=== PATIENT | male | born 1960 | race Caucasian/White ===

== ENCOUNTER → 2024-02-20 | Outpatient (CLI) | payer MEDICARE, SELFPAY ==
--- NOTE | 2024-02-20 10:00 | XR_ITS ---
Examination: CTA chest with intravenous contrast 2-D reconstructions 3-D reconstructions, vascular Date and time of exam: February 20, 2024 1108 hours INDICATIONS: CT chest January 24, 2023 4 mm pulmonary nodule lingular segment left upper lobe CTDI: vol (mGy) 28.9 DLP: (mGycm) 620 Technique: Multiple axial sections of the thorax have been obtained. 3 mm slice thickness, from below the hemidiaphragms to above the apices of the lungs. Mediastinal and lung density settings have been obtained. 2-D sagittal and coronal reconstructions. 3-D angiographic renderings, 3-D volume renderings, 3D post processing, vascular maximum intensity projections obtained. Contrast administered is 100 cc Isovue-370 intravenous. Low dose protocols were performed. One or more of the following dose reduction techniques were used; automated exposure control, adjustment of the mA and/or KV according to patient size, use of iterative reconstruction technique. Findings: No thoracic aortic aneurysm dilatation or dissection No pulmonary artery emboli No paratracheal tracheobronchial or bronchopulmonary adenopathy No current pulmonary nodules No pneumonia or pulmonary edema No interval solid liver lesions Gallstones are not identified IMPRESSION: No mediastinal lymphadenopathy No current pulmonary nodules noted
[2024-02-20 10:34] LABS: Alanine Aminotransferase 22 U/L (10-49); Albumin, Serum 4.1 gm/dL (3.4-4.8); Albumin/Globulin Ratio 1.6 (1.2-2.2); Alkaline Phosphatase 69 U/L (46-116); Anion Gap 6 (7-16); Aspartate Amino Transferase 16 U/L (0-34); BUN/Creatinine Ratio 19 Ratio (12-20); Bilirubin,Total 0.6 mg/dL (0.3-1.2); Blood Urea Nitrogen 17 mg/dL (9-23); Calcium 9.1 mg/dL (8.3-10.6); Calcium (Corrected) 9.1 mg/dL (8.5-10.1); Carbon Dioxide 28.1 mMol/L (20.0-31.0); Chloride 102 mMol/L (98-107); Creatinine (Component) 0.9 mg/dL (0.6-1.3); Globulin 2.5 gm/dL (2.3-3.5); Glucose 94 mg/dL (74-106); Osmolality,Calculated 273 (275-295); Potassium 4.6 mMol/L (3.4-5.1); Sodium 136 mMol/L (136-145); Total Protein 6.6 gm/dL (5.7-8.2); eGFR > 60 See Note
== END | disposition home or self-care (01) ==
LOC: CCTX 09:29 → COPL 09:39
PROVIDERS: PCP Nurse Practitioner Family; Referring Provider Nurse Practitioner Family; Visit Provider Radiology Diagnostic Radiology
DX: R91.8 Other nonspecific abnormal finding of lung field (principal); Z01.812 Encounter for preprocedural laboratory examination
CPT/HCPCS: 36415; 71275; 80053; A4649; Q9967

== ENCOUNTER → 2024-05-21 | Outpatient (CLI) | payer MEDICARE, SELFPAY ==
--- NOTE | 2024-05-21 10:30 | XR_ITS ---
MRI shoulder, left, without contrast. Date and time: May 21, 2024 1036 hours INDICATIONS: Injury to the shoulder 2 years ago, patient fell with shoulder pain Technique: Multiple axial, sagittal and coronal sections of the shoulder have been obtained. Siemens high-resolution 1.5 Ada MRI scanner is utilized. Axial fat-suppressed sections, TR 2350, TE 18 T2-weighted coronal fat-saturated images, TR 3500, TE 7100 T1-weighted coronal images, TR 500, TE 15 T2-weighted sagittal fat-saturated images, TR 3500, TE 57 T1-weighted sagittal sections left, TR 504, TE 13. Findings: 25 mm full-thickness rotator cuff tear Subscapularis insertion is intact. Subscapularis bursa is not seen. Long head of the biceps is in the bicipital groove. No definite tear of the biceps superior labral anchor is seen. Retraction of the musculotendinous junction of the rotator cuff is not seen . Tendinosis pattern is prominent. Distance between the acromium and humeral head is 9 mm Atrophy of the supraspinatus muscle is severe. Atrophy of the infraspinatus muscle is severe. Sagittal sections demonstrate a horizontal acromion. Acromioclavicular joint demonstrates moderate osteoarthritis. Osacromiale is not identified. Fraying and irregularity anterior superior labral margins. Bony glenoid fossa on the sagittal sections does not demonstrate osseous defect. Occult fracture or area of avascular necrosis is not seen. Acromioclavicular joint separation is not visible. Defect in the posterolateral margin of the humeral head is not seen Impression: 25 mm full-thickness rotator cuff tear Fraying and irregularity anterior superior labral margins
== END | disposition home or self-care (01) ==
PROVIDERS: PCP Internal Medicine; Referring Provider Orthopaedic Surgery; Visit Provider Orthopaedic Surgery
DX: S46.012A Strain of muscle(s) and tendon(s) of the rotator cuff of left shoulder, initial encounter (principal); W19.XXXA Unspecified fall, initial encounter; M25.812 Other specified joint disorders, left shoulder
CPT/HCPCS: 73221

== ENCOUNTER 2024-11-15 14:12 | Emergency (ER) | payer MEDICARE, SELFPAY ==
[2024-11-15 14:20] VITALS: BP 131/90; PULSE 78; RESP 20; TEMP 37.1; O2SAT 95; BMI 43.5
--- NOTE | 2024-11-15 14:38 | PD.EDRME ---
Rapid Medical Screening Exam [facility] Arrival date/time: 11/15/24 14:12 Chief Complaint: Extremity Injury, Lower Time Seen by Provider: 11/15/24 14:23 Vital signs: Vital Signs Temperature 98.7 F 11/15/24 14:20 Pulse Rate 78 11/15/24 14:20 Respiratory Rate 20 11/15/24 14:20 Blood Pressure 131/90 H 11/15/24 14:20 Pulse Oximetry (%) 95 11/15/24 14:20 Oxygen Delivery Method Room Air 11/15/24 14:20 [facility] Narrative: 64-year-old male with history of A-fib fell 3 days ago. States now feels some shortness of breath and thinks from the pain he is going into runs of A-fib, on Xarelto 5 mg twice daily. States now his upper leg knee right calf and right ankle hurt and unable to bear weight. He is worried that he may be having something with his heart as well today. Due to him being sweaty and having some shortness of breath earlier today did not take aspirin.
--- NOTE | 2024-11-15 14:39 | XR_ITS ---
Examination: Right femur 2 views Technique one AP lateral right femur 2 views Date and time: November 15, 2024 1442 hrs. Indications: Injury to the right femur 3 days ago with pain. Findings: No right hip fracture or dislocation Moderate right hip osteoarthritis Shaft of the femur intact Moderate narrowing medial and patellofemoral joints Impression: Moderate right hip osteoarthritis No acute right hip or femoral shaft fracture
--- NOTE | 2024-11-15 14:39 | XR_ITS ---
Examination: Knee, right , 3 views Technique: Knee AP, lateral, oblique 3 views Date and time of exam: November 15, 2024 1452 hrs. Indications: Injury to the knee 3 days ago, knee pain. Findings: No acute fracture No dislocation Moderate to advanced tricompartment osteoarthritis Impression: No acute fracture Small knee effusion
--- NOTE | 2024-11-15 14:39 | XR_ITS ---
Examination: Duplex scan of the lower extremity, unilateral right complete Date and time of exam: November 15, 2024, 1519 hrs. Indications: Patient fell 3 days ago with injury to leg, leg pain, patient is anticoagulated. Technique: Duplex scan of the extremity veins using B-mode/grayscale imaging and Doppler spectral analysis and color flow Attention is directed to internal echogenicity, compression and augmentation involving these veins, color flow assessment, spectral analysis Findings: Positive for nonocclusive thrombus right common femoral vein as well as superficial greater saphenous vein Remaining deep venous systems are open Impression: Positive for nonocclusive thrombus right common femoral vein
--- NOTE | 2024-11-15 14:39 | XR_ITS ---
Examination: Tibia-Fibula, right , 2 views Technique: Tibia-fibula AP lateral 2 views Date and time of exam: November 15, 2024 1442 hrs. Indications: Injury to the right lower leg 3 days ago, lower leg pain. Findings: No fracture or dislocation. No foreign body Impression: No fracture or dislocation
--- NOTE | 2024-11-15 14:39 | XR_ITS ---
Examination: PA lateral chest 2 views Technique: Upright PA lateral chest 2 views Date and time: November 15, 2024 1442 hrs. Indications: Shortness of breath cardiac palpitations, history atrial fibrillation Findings: Mild prominence left ventricle Moderate vascular congestion including central vascular engorgement. No david pulmonary edema, no pneumonia Impression: Mild prominence left ventricle Moderate vascular congestion including central vascular engorgement.
--- NOTE | 2024-11-15 14:39 | EKG_ITS ---
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: : [id number] Requested By: Sweta Serrano Order Number: [id number] Reading MD: Sweta Serrano Measurements Intervals [place] Rate: 87 P: HI: QRS: -48 QRSD: 102 T: 31 QT: 361 QTc: 436 Interpretive Statements ATRIAL FIBRILLATION WITH ABERRANT CONDUCTION OR VENTRICULAR PREMATURE COMPLEXES LOW QRS VOLTAGE IN PRECORDIAL LEADS [QRS DEFLECTION < 1.0 mV IN CHEST LEADS] INCOMPLETE RIGHT BUNDLE BRANCH BLOCK [90+ ms QRS DURATION, TERMINAL R IN V1/V2, 40+ ms S IN I/aVL/V4/V5/V6] LEFT ANTERIOR FASCICULAR BLOCK [QRS AXIS <= -45, QR IN I, RS IN II] POSSIBLE ANTERIOR MYOCARDIAL INFARCTION , PROBABLY OLD [30 ms Q WAVE IN V3/V4, OR R < 0.2 mV IN V4] No previous ECG available for comparison /store/S0/[id number]/ecg/[id number].pdf
--- NOTE | 2024-11-15 14:39 | XR_ITS ---
EXAMINATION: Ankle, right 3 views . Technique: Ankle AP, oblique, lateral 3 views Date and time of exam: November 15, 2024 1442 hrs. Indications: Injury to the ankle 3 days ago, ankle pain. Findings: Bimalleolar soft tissue swelling. No ankle fracture or dislocation Impression: No ankle fracture or dislocation
[2024-11-15] MEDS: HYDROcodone/APAP 5/325 TABLET 1 TAB PO (15:38)
[2024-11-15 16:13] LABS: Basophils # (Auto) 0.0 Thou/mm3 (0.0-0.2); Basophils % (Auto) 1 % (0-2.5); Eosinophils # (Auto) 0.3 Thou/mm3 (0.0-0.5); Eosinophils % (Auto) 4 % (0-10); Hematocrit 39.3 % (41.0-53.0); Hemoglobin 12.9 g/dL (13.5-16.0); Immature Granulocytes Auto 0.01 Thou/mm3 (0.00-0.00); Lymphocytes # (Auto) 1.0 Thou/mm3 (1.0-4.8); Lymphocytes % (Auto) 12 % (10-50); Mean Corpuscular HGB Conc 32.8 g/dl (31.0-37.0); Mean Corpuscular Hemoglobin 31.9 pg (25.0-35.0); Mean Corpuscular Volume 97 fL (80-100); Monocytes # (Auto) 0.6 Thou/mm3 (0.0-0.8); Monocytes % (Auto) 7 % (0-12); Neutrophils # (Auto) 6.7 Thou/mm3 (1.8-7.7); Neutrophils % (Auto) 77 % (37-80); Nucleated Red Blood Cell # 0.00 Thou/mm3 (0.00-0.00); Nucleated Red Blood Cell % 0 /100 WBC (0); Platelet Count 309 Thou/mm3 (140-440); RDW Standard Deviation 51.5 fL (35.1-43.9); Red Blood Count 4.05 Miln/mm3 (4.50-5.90); White Blood Count 8.7 Thou/mm3 (3.8-10.6)
--- NOTE | 2024-11-15 16:25 | EDNOTE_ITS ---
<Statement entered by Laura Escobedo MD - 11/16/24 06:02> I, Laura Escobedo MD, have reviewed the history, exam, and assessment of the patient. I have evaluated the patient independently and agree with the plan of care documented by [ ]. All diagnostic studies were reviewed and discussed. I confirm the diagnosis as documented by the Resident. I was present during the Medical Decision Making for this patient. The patient's plan of care was created between myself and the Resident and consistent with our discussion of the patient's case. Lower Extremity Injury RME/HPI General Chief Complaint: Extremity Injury, Lower Stated Complaint: LEFT KNEE/LEG/ANKLE INJURY Time Seen by Provider: 11/15/24 14:23 Arrival date/time: 11/15/24 14:12 RME / HPI RME / HPI Narrative: 64-year-old male with history of A-fib fell 3 days ago. States now feels some shortness of breath and thinks from the pain he is going into runs of A-fib, on Eliquis 5 mg twice daily. States now his upper leg knee right calf and right ankle hurt and unable to bear weight. He is worried that he may be having something with his heart as well today. Due to him being sweaty and having some shortness of breath earlier today did not take aspirin. Mr. Sanabria is a 64-year-old male with past medical history of atrial fibrillation on Eliquis, hypothyroidism, rheumatoid arthritis and hypertension who presented to [facility] emergency department with a chief complaint of right leg pain. Patient had a ground-level mechanical fall down a curb and hit his leg, x-rays obtained in [facility] for right ankle, femur, knee and tibia-fibula are negative for any acute fractures, denies hitting head. 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 Patient's EKG shows atrial fibrillation, rate controlled. Patient denies any chest pain, shortness of breath, headache, nausea, vomiting and dizziness. Related Data Home Medications ?Medication ?Instructions ?Recorded ?Confirmed Levothyroxine * (SYNTHROID *) 100 mcg PO QDAY #0 tabs 03/03/14 12/11/23 lisinopril 10 mg tablet 10 mg PO QDAY #0 tabs 12/11/23 tramadol 50 mg tablet (Ultram) 50 mg PO BID PRN PAIN # 0 tabs 06/27/16 12/11/23 Allergies Allergy/AdvReac Type Severity Reaction Status Date / Time No Known Allergies Allergy Unverified 11/15/24 14:43 Review of Systems Review of Systems Systems Reviewed: All systems reviewed, normal except as documented Past Medical History Past Medical History Comments PMH COMMENT: PMH: Positive for atrial fibrillation on Eliquis, hypothyroidism, rheumatoid arthritis and hypertension PSHx: Left Knee Replacement Allergies: NKA Social history: -Smokinpack years in past -Alcohol Use:Denies heavy use -Illicit Drug Use:Denies -Martial Status:, spouse at bedside Family History:Not remarkable ED Exam Narrative Physical exam: Physical Exam General: Awake and in no acute distress. Conversational and non-toxic appearing. HEENT: Normocephalic, atraumatic, mucous membranes moist. Heart: Atrial Fibrillation, rate controlled, no murmurs. Lungs: Clear to auscultation with no wheezing or crackles. Abdomen: Soft, obese, nondistended, nontender, positive bowel sounds. ?No guarding or rebound tenderness. Neurologic: Alert and oriented x3, no gross neurological deficit, and patient able to move all 4 extremities. Extremities: RLE 2+ > LLE 1+ Skin: No rash or ecchymoses. Course Course Course Narrative: Patient presented to ER room 11 from triage in triage patient's right ankle x-ray was negative for any fracture or dislocation, chest x-ray was significant for mild prominent left ventricle, moderate vascular congestion, right femur x-ray negative for any femoral fracture, right knee x-ray negative for any acute fracture, tibia-fibula x-ray negative for fracture or dislocation. Patient was placed on awake overnight monitor because of funny sensation in chest and moved to ED 11. Venous Doppler obtained of right extremity shows nonocclusive thrombus right common femoral vein and superficial greater saphenous vein, EKG showed atrial fibrillation rate controlled CTA chest ordered to rule out PE?pending Quality Measures none Orders Category Date Time Status CT Screening NOW Care 11/15/24 17:12 Active EKG (ED ONLY) *Do not use* NOW Care 11/15/24 14:[address] angio chest Stat Exams 11/15/24 17:12 Completed EKG (ED Only) Stat Exams 11/15/24 14:39 Draft US venous doppler LE RT Stat Exams 11/15/24 14:39 Completed XR ankle comp RT min 3V Stat Exams 11/15/24 14:39 Completed XR chest 2V Stat Exams 11/15/24 14:39 Completed XR femur RT 2V Stat Exams 11/15/24 14:39 Completed XR knee RT 3V Stat Exams 11/15/24 14:39 Completed XR tibia fibula RT 2V Stat Exams 11/15/24 14:39 Completed BNP [B-Type Natriuretic Peptide] Stat Lab 11/15/24 16:00 Completed CBC Stat Lab 11/15/24 16:00 Completed CMP [Comprehensive Metabolic Panel] Stat Lab 11/15/24 16:00 Completed Magnesium Stat Lab 11/15/24 16:00 Completed Troponin I Stat Lab 11/15/24 16:00 Completed Aspirin Med 11/15/24 14:41 Discontinued 325 mg PO X1 ONE HYDROcodone*/APAP 5/325 [[place] 5/325] Med 11/15/24 14:41 Discontinued 1 tab PO X1 ONE Vital Signs Vital signs: Vital Signs Temperature 98.7 F 11/15/24 14:20 Pulse Rate 78 11/15/24 14:20 Respiratory Rate 20 11/15/24 14:20 Blood Pressure 131/90 H 11/15/24 14:20 Pulse Oximetry (%) 95 11/15/24 14:20 Oxygen Delivery Method Room Air 11/15/24 14:20 Extremity Injury, Lower MDM Narrative MDM Narrative:: #Right extremity DVT #Status post fall ground-level Patient presented for evaluation status post fall, imaging obtained for lower extremity negative Venous Dopplers right extremity positive for DVT patient has been adherent to his Eliquis regimen There is suspicion that patient has failed Eliquis for anticoagulation and will likely need to change therapy Will order chest CTA to rule out pulmonary embolism Pending CTA chest will be signed out to night ED physician Case discussed with Attending Physician Dr. Gregg Shah MD Internal Medicine PGY-2 Disclaimer: This note was dictated by speech recognition. Minor errors in agriculture laborer may be present due to voice recognition software. Patient data External records reviewed:: [facility] previous records Clinical information provided by:: patient Social determinants that could affect healthcare access:: none Patient has the following chronic illnesses:: As above How is presenting disease/condition affected by chronic disease/condition?: exacerbated by Evaluation data The following diagnostics were reviewed and interpreted by me:: lab results, radiology exam(s) and EKG tracing(s) Lab and/or radiology exams considered but not ordered:: None Interpretation Summary: right ankle x-ray was negative for any fracture or dislocation, chest x-ray was significant for mild prominent left ventricle, moderate vascular congestion, r ight femur x-ray negative for any femoral fracture, right knee x-ray negative for any acute fracture, tibia-fibula x-ray negative for fracture or dislocation. Venous Doppler obtained of right extremity shows nonocclusive thrombus right common femoral vein and superficial greater saphenous vein, EKG showed atrial fibrillation rate controlled CTA chest pending Medications / Prescriptions Medications or Prescriptions considered but not ordered:: None Medication administrations:: Medication Administration History Discontinued Medications Hydrocodone Bitart/Acetaminophen (Hydrocodone/Apap 5/325 Tablet) 1 tab PO X1 ONE Stop: 11/15/24 14:42 Last Admin: 11/15/24 15:38 Dose: 1 tab Documented By: OA Aspirin (Aspirin 325 Mg Tablet) 325 mg PO X1 ONE Stop: 11/15/24 14:42 Last Admin: 11/15/24 15:38 Dose: 325 mg Documented By: OA As above Consultations Consultation(s) initiated? (list below): No Diagnosis Extremity Injury, Lower Differential Diagnosis: ankle sprain and strain Most likely diagnosis given after review of the tests above:: Right lower extremity DVT Admission Indicated Admission indicated?: not indicated Admission Request Was there a request for admission?: No Disposition Plan Disposition Plan: other (specify) (Will be signed out to night ED physician, pending CTA chest) Discharge Plan Prescriptions/Referrals Prescriptions/Med Rec: No Action lidocaine HCl [Xylocaine] 10 mg/mL (1 %) solution 20 ml Infiltration X1 Qty: 20 0RF triamcinolone acetonide 40 mg/mL suspension 40 mg intra-articular X1 Qty: 1 0RF Levothyroxine * (SYNTHROID *) 200 MCG tablet 100 mcg PO QDAY Qty: 0 tramadol [Ultram] 50 MG tablet 50 mg PO BID PRN (Reason: PAIN) Qty: 0 Patient Comments: FOR PAIN, NOT TO EXCEED 8 TABS IN 24 HRS lisinopril 10 MG tablet 10 mg PO QDAY Qty: 0 Referrals: Brenda Kelsey MD [Primary Care Provider] - In 1 week Problem List Clinical Impression: DVT (deep venous thrombosis) Patient/Caregiver Discharge Instructions Print Language: Uruguayan
[2024-11-15 16:30] LABS: Alanine Aminotransferase 20 U/L (10-49); Albumin, Serum 4.1 gm/dL (3.4-4.8); Albumin/Globulin Ratio 1.5 (1.2-2.2); Alkaline Phosphatase 63 U/L (46-116); Anion Gap 7 (7-16); Aspartate Amino Transferase 18 U/L (0-34); B-Type Natriuretic Peptide 146 pg/mL (0-100); BUN/Creatinine Ratio 16 Ratio (12-20); Bilirubin,Total 0.4 mg/dL (0.3-1.2); Blood Urea Nitrogen 14 mg/dL (9-23); Calcium 9.3 mg/dL (8.3-10.6); Calcium (Corrected) 9.3 mg/dL (8.5-10.1); Carbon Dioxide 27.6 mMol/L (20.0-31.0); Chloride 107 mMol/L (98-107); Creatinine (Component) 0.9 mg/dL (0.6-1.3); Estimated Creatinine Clearance 123.1 mL/min (>60); Globulin 2.7 gm/dL (2.3-3.5); Glucose 107 mg/dL (74-106); Magnesium 2.0 mg/dL (1.6-2.6); Osmolality,Calculated 283 (275-295); Potassium 4.8 mMol/L (3.4-5.1); Sodium 142 mMol/L (136-145); Total Protein 6.8 gm/dL (5.7-8.2); Troponin I < 0.020 ng/mL (0.0-0.045); eGFR > 60 See Note
[2024-11-15 16:35] VITALS: BP 128/81; PULSE 85; RESP 17; TEMP 36.9; O2SAT 97
--- NOTE | 2024-11-15 17:12 | XR_ITS ---
Examination: CTA chest with intravenous contrast 2-D reconstructions 3-D reconstructions, vascular Date and time of exam: November 15, 2024 1739 hrs. Indications: Positive venous Doppler sonogram for DVT today, atrial fibrillation, shortness of breath, right leg swelling and pain today chest pain clinical diagnosis pulmonary embolus CTDI: vol (mGy) 25.7 DLP: (mGycm) 560 Technique: Multiple axial sections of the thorax have been obtained. 3 mm slice thickness, from below the hemidiaphragms to above the apices of the lungs. Mediastinal and lung density settings have been obtained. 2-D sagittal and coronal reconstructions. 3-D angiographic renderings, 3-D volume renderings, 3D post processing, vascular maximum intensity projections obtained. Contrast administered is 100 cc Isovue-370. Low dose protocols were performed. One or more of the following dose reduction techniques were used; automated exposure control, adjustment of the mA and/or KV according to patient size, use of iterative reconstruction technique. Findings: No thoracic aortic aneurysmal dilatation or dissection Main pulmonary artery segment 31 mm No pulmonary artery filling defects No filling defects noted in the left atrium or left ventricle Moderate vascular congestion 11 mm nodule versus small focus of pneumonia in the left lower lobe image 213 Liver mildly irregular in contour No gallstones Spleen not enlarged No pancreatic or adrenal mass No hydronephrosis Impression: Negative for pulmonary artery emboli No filling defects in the left atrium or left ventricle Moderate vascular congestion 11 mm nodule versus small focus pneumonia in the left lower lobe, clinical correlation advised
--- NOTE | 2024-11-15 18:13 | EDNOTE_ITS ---
Emergency Room Addendum Addendum Narrative: 1800: Care assumed from Dr. Shah, attending Dr. Escobedo, the previous shift emergency physician. Past medical, surgical, social and family history reviewed. Vitals and home medications reviewed. Results and treatment plan discussed. I will assume the care of the patient at this time and will follow the patient. Please refer to the emergency department record for history and examination from initial visit. 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 Work-up including RLE US demonstrated nonocclussive RLE DVT involving common femoral and superficial greater saphenous vein. CT obtained which was unremarkable except for left lower lobe nodule, which will likely require further evaluation. No PE identified. Patient resting comfortably and is hemodynamically stable without signs of respiratory distress. Although RLE DVT may be trauma-induced, patient has been on Eliquis and is considered failed therapy. Will start on Coumadin and bridge on Lovenox. Recommended close follow-up with PMD for serial PT/INR/PTT tests. Precautionary instructions issued. Dx: RLE DVT, left pulmonary nodule RADIOLOGY RESULTS: [place] [facility] Report Signed Patient: FALLON ABBOTT [facility]. Record#: [id number] Birthdate: 1960 Age/Sex: 64 / M Location: [facility] Attending Dr: Ordering Physician: Farhan Shah MD Date of Service: 11/15/24 Procedure(s): CT angio chest Accession Number(s): [id number] cc: Brenda Kelsey MD; Pola Hidalgo MD; Farhan Shah MD~ Examination: CTA chest with intravenous contrast 2-D reconstructions 3-D reconstructions, vascular Date and time of exam: November 15, 2024 1739 hrs. Indications: Positive venous Doppler sonogram for DVT today, atrial fibrillation, shortness of breath, right leg swelling and pain today chest pain clinical diagnosis pulmonary embolus CTDI: vol (mGy) 25.7 DLP: (mGycm) 560 Technique: Multiple axial sections of the thorax have been obtained. 3 mm slice thickness, from below the hemidiaphragms to above the apices of the lungs. Mediastinal and lung density settings have been obtained. 2-D sagittal and coronal reconstructions. 3-D angiographic renderings, 3-D volume renderings, 3D post processing, vascular maximum intensity projections obtained. Contrast administered is 100 cc Isovue-370. Low dose protocols were performed. One or more of the following dose reduction techniques were used; automated exposure control, adjustment of the mA and/or KV according to patient size, use of iterative reconstruction technique. Findings: No thoracic aortic aneurysmal dilatation or dissection Main pulmonary artery segment 31 mm No pulmonary artery filling defects No filling defects noted in the left atrium or left ventricle Moderate vascular congestion 11 mm nodule versus small focus of pneumonia in the left lower lobe image 213 Liver mildly irregular in contour No gallstones Spleen not enlarged No pancreatic or adrenal mass No hydronephrosis Impression: Negative for pulmonary artery emboli No filling defects in the left atrium or left ventricle Moderate vascular congestion 11 mm nodule versus small focus pneumonia in the left lower lobe, clinical correlation advised Dictated By: Pola Hidalgo MD Signed By: <Electronically signed by Pola Hidalgo MD in [place]> 11/15/24 3500
[2024-11-15 18:23] VITALS: BP 117/65; PULSE 81; RESP 20; TEMP 36.9; O2SAT 95
[2024-11-15] MEDS: ENOXAPARIN 150 MG/ML SC (20:48)
[2024-11-15 21:00] VITALS: BP 107/59; PULSE 92; RESP 18; TEMP 36.9; O2SAT 97
== END 2024-11-15 21:00 | disposition home or self-care (01) ==
PROVIDERS: Physician Assistant; Emergency Provider Emergency Medicine; PCP Internal Medicine
DX: I82.411 Acute embolism and thrombosis of right femoral vein (principal); I48.91 Unspecified atrial fibrillation; E03.9 Hypothyroidism, unspecified; M06.9 Rheumatoid arthritis, unspecified; I10 Essential (primary) hypertension
CPT/HCPCS: 36415; 71046; 71275; 73552; 73562; 73590; 73610; 80053; 83735; 83880; 84484; 85025; 93005; 93971; 96372; 99284; A4649; J1650; Q9967; A9270

== ENCOUNTER 2024-11-16 12:22 | Emergency (ER) | payer MEDICARE, SELFPAY ==
[2024-11-16 12:40] VITALS: BP 118/78; PULSE 88; RESP 18; TEMP 37.4; O2SAT 95
--- NOTE | 2024-11-16 13:07 | EDNOTE_ITS ---
<Statement entered by Laura Escobedo MD - 11/17/24 14:32> As co-signing physician, I was present and available for consult prn. I concur with the plan and care as documented by the midlevel provider. ED General RME/HPI General Chief complaint: Ankle/Foot Injury Stated complaint: PAIN/SWELLING R) ANKLE Time Seen by Provider: 11/16/24 12:55 Arrival date/time: 11/16/24 12:22 RME / HPI RME / HPI narrative: 60-year-old patient presents emergency department with complaint of blood clot to right lower leg patient states that he was originally on Eliquis prior to the fall which led to a blood clot to his right lower leg. He was seen in this emergency department recently and told to discontinue his Eliquis and was prescribed enoxaparin 150 mg subcu twice a day for 3 days and then he was supposed to start on warfarin 10 mg for 3 days and then stepdown to warfarin 5 mg for 30 days. He states that when he got his pharmacy he was told that the medication was not ready yet hence he is return to the emergency department. Patient is also requesting medication for pain relief. He denies shortness of breath he denies cough. He rates his pain currently as a 9 out of 10. Related Data Home Medications ?Medication ?Instructions ?Recorded ?Confirmed Levothyroxine * (SYNTHROID *) 100 mcg PO QDAY #0 tabs 03/03/14 12/11/23 lisinopril 10 mg tablet 10 mg PO QDAY #0 tabs 12/11/23 tramadol 50 mg tablet (Ultram) 50 mg PO BID PRN PAIN # 0 tabs 06/27/16 12/11/23 Previous Rx's ?Medication ?Instructions ?Recorded enoxaparin 150 mg/mL subcutaneous 150 mg subcut Q12H 3 days #6 mL 11/15/24 syringe warfarin 5 mg tablet 5 mg PO QDAY #30 tabs warfarin 5 mg tablet 10 mg (2 x 5 mg) PO DAILY 3 days 11/15/24 #6 tabs hydrocodone 5 mg-acetaminophen 325 1 tab PO BID PRN pa in 5 days #10 11/16/24 mg tablet tabs Allergies Allergy/AdvReac Type Severity Reaction Status Date / Time No Known Allergies Allergy Verified 11/16/24 12:27 Review of Systems Review of Systems Systems Reviewed: All systems reviewed, normal except as documented Constitutional Constitutional: Reports system reviewed and no additional complaints, except as documented Cardiovascular Cardiovascular: Reports system reviewed and no additional complaints, except as documented Respiratory Respiratory: Reports system reviewed and no additional complaints, except as documented Musculoskeletal Musculoskeletal: Reports system reviewed and no additional complaints, except as documented Neurologic Neurologic: Reports system reviewed and no additional complaints, except as documented ED Exam General General appearance: Present alert and in no apparent distress Head Head exam: Present atraumatic and normocephalic ENT ENT exam: Present normal oropharynx Chest Chest inspection: Present normal inspection and symmetric chest wall rise Respiratory Respiratory exam: Present normal lung sounds bilaterally and respiratory distress Cardiovascular Cardiovascular exam: Present regular rate and normal rhythm Expanded Lower Extremity Exam Lower leg exam: Present full ROM, tenderness and swelling; Absent palpable cord Neurological Exam Neurological exam: Present alert and oriented X3 Psychiatric Psychiatric exam: Present normal affect Course Quality Measures none Orders Category Date Time Status Enoxaparin [Lovenox] Med 11/16/24 13:30 Discontinued 150 mg SC X1 ONE HYDROcodone*/APAP 5/325 [[place] 5/325] Med 11/16/24 13:10 Discontinued 1 tab PO X1 ONE Vital Signs Vital signs: Vital Signs Temperature 99.4 F 11/16/24 12:40 Pulse Rate 88 11/16/24 12:40 Respiratory Rate 18 11/16/24 12:40 Blood Pressure 118/78 11/16/24 12:40 Pulse Oximetry (%) 95 11/16/24 12:40 Oxygen Delivery Method Room Air 11/16/24 12:40 Discharge Plan Plan Patient Disposition: HOME (Self Care) Prescriptions/Referrals Prescriptions/Med Rec: New hydrocodone-acetaminophen 5-325 mg tablet 1 tab PO BID MDD 2 tabs PRN (Reason: pain) 5 Days Qty: 10 0RF No Action lidocaine HCl [Xylocaine] 10 mg/mL (1 %) solution 20 ml Infiltration X1 Qty: 20 0RF triamcinolone acetonide 40 mg/mL suspension 40 mg intra-articular X1 Qty: 1 0RF Levothyroxine * (SYNTHROID *) 200 MCG tablet 100 mcg PO QDAY Qty: 0 tramadol [Ultram] 50 MG tablet 50 mg PO BID PRN (Reason: PAIN) Qty: 0 Patient Comments: FOR PAIN, NOT TO EXCEED 8 TABS IN 24 HRS lisinopril 10 MG tablet 10 mg PO QDAY Qty: 0 warfarin 5 mg tablet 10 mg PO DAILY 3 Days Qty: 6 0RF warfarin 5 mg tablet 5 mg PO QDAY Qty: 30 2RF enoxaparin 150 mg/mL syringe 150 mg subcut Q12H 3 Days Qty: 6 0RF Problem List Clinical Impression: Acute deep vein thrombosis (DVT) of right lower extremity Patient/Caregiver Discharge Instructions Education Materials: Compression Stockings Steps, ED Deep Vein Thrombosis (DVT) Print Language: Georgian Stand Alone Forms: Marian Award Info., Patient Portal Info Letter MDM Medication Administration(s) Medication Administration History Discontinued Medications Hydrocodone Bitart/Acetaminophen (Hydrocodone/Apap 5/325 Tablet) 1 tab PO X1 ONE Stop: 11/16/24 13:11 Last Admin: 11/16/24 13:59 Dose: 1 tab Documented By: ADRIANA Enoxaparin Sodium (Enoxaparin Sod Inj 150 Mg/Ml Syringe) 150 mg SC X1 ONE Stop: 11/16/24 13:31 Last Admin: 11/16/24 14:00 Dose: 150 mg Documented By: ADRIANA Per above
[2024-11-16] MEDS: HYDROcodone/APAP 5/325 TABLET 1 TAB PO (13:59)
[2024-11-16] MEDS: ENOXAPARIN 150 MG/ML SC (14:00)
== END 2024-11-16 14:23 | disposition home or self-care (01) ==
LOC: SERX 14:28
PROVIDERS: Emergency Provider Emergency Medicine; PCP Internal Medicine
DX: I82.401 Acute embolism and thrombosis of unspecified deep veins of right lower extremity (principal)
CPT/HCPCS: 96372; 99283; J1650; A9270

== ENCOUNTER → 2024-11-24 | Outpatient (CLI) | payer MEDICARE, SELFPAY ==
[2024-11-24 14:58] LABS: INR 2.3 (0.9-1.3); Prothrombin Time 23.4 Seconds (9.0-12.2)
== END | disposition home or self-care (01) ==
PROVIDERS: PCP Internal Medicine; Referring Provider Internal Medicine; Visit Provider Internal Medicine
DX: I82.411 Acute embolism and thrombosis of right femoral vein (principal); Z79.899 Other long term (current) drug therapy
CPT/HCPCS: 36415; 85610

== ENCOUNTER 2025-01-01 10:38 | Outpatient (CLI) | payer MEDICARE, SELFPAY ==
[2024-12-30 15:44] VITALS: BMI 43.7
--- NOTE | 2024-12-31 08:38 | EKG_ITS ---
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 : 1960 Requested By: Marshall Castle Order Number: [id number] Reading MD: Marshall Castle Measurements Intervals [place] Rate: 84 P: [place]: QRS: -27 QRSD: 98 T: 30 QT: 341 QTc: 405 Interpretive Statements ATRIAL FIBRILLATION INCOMPLETE RIGHT BUNDLE BRANCH BLOCK [90+ ms QRS DURATION, TERMINAL R IN V1/V2, 40+ ms S IN I/aVL/V4/V5/V6] POSSIBLE ANTERIOR MYOCARDIAL INFARCTION , PROBABLY OLD [30 ms Q WAVE IN V3/V4, OR R < 0.2 mV IN V4] ABNORMAL RHYTHM ECG Compared to ECG 11/15/2024 14:42:28 Ventricular premature complex(es) no longer present Aberrant conduction of supraventricular beat(s) no longer present Left anterior fascicular block no longer present Myocardial infarct finding still present /store/S0/[id number].pdf
[2024-12-31 09:02] LABS: Basophils # (Auto) 0.0 Thou/mm3 (0.0-0.2); Basophils % (Auto) 0 % (0-2.5); Eosinophils # (Auto) 0.1 Thou/mm3 (0.0-0.5); Eosinophils % (Auto) 1 % (0-10); Hematocrit 41.4 % (41.0-53.0); Hemoglobin 13.2 g/dL (13.5-16.0); Immature Granulocytes Auto 0.02 Thou/mm3 (0.00-0.00); Lymphocytes # (Auto) 1.6 Thou/mm3 (1.0-4.8); Lymphocytes % (Auto) 21 % (10-50); Mean Corpuscular HGB Conc 31.9 g/dl (31.0-37.0); Mean Corpuscular Hemoglobin 30.6 pg (25.0-35.0); Mean Corpuscular Volume 96 fL (80-100); Monocytes # (Auto) 0.7 Thou/mm3 (0.0-0.8); Monocytes % (Auto) 9 % (0-12); Neutrophils # (Auto) 5.0 Thou/mm3 (1.8-7.7); Neutrophils % (Auto) 68 % (37-80); Nucleated Red Blood Cell # 0.00 Thou/mm3 (0.00-0.00); Nucleated Red Blood Cell % 0 /100 WBC (0); Platelet Count 338 Thou/mm3 (140-440); RDW Standard Deviation 51.1 fL (35.1-43.9); Red Blood Count 4.31 Miln/mm3 (4.50-5.90); White Blood Count 7.4 Thou/mm3 (3.8-10.6)
[2024-12-31 09:10] LABS: INR 2.1 (0.9-1.3); Partial Thromboplastin Time 33.6 Seconds (22.0-36.0); Prothrombin Time 20.6 Seconds (9.0-12.2)
[2024-12-31 09:20] LABS: Alanine Aminotransferase 25 U/L (10-49); Albumin, Serum 4.2 gm/dL (3.4-4.8); Albumin/Globulin Ratio 1.7 (1.2-2.2); Alkaline Phosphatase 69 U/L (46-116); Anion Gap 7 (7-16); Aspartate Amino Transferase 20 U/L (0-34); BUN/Creatinine Ratio 16 Ratio (12-20); Bilirubin,Total 0.5 mg/dL (0.3-1.2); Blood Urea Nitrogen 14 mg/dL (9-23); Calcium 8.7 mg/dL (8.3-10.6); Calcium (Corrected) 8.7 mg/dL (8.5-10.1); Carbon Dioxide 30.6 mMol/L (20.0-31.0); Chloride 104 mMol/L (98-107); Creatinine (Component) 0.9 mg/dL (0.6-1.3); Estimated Creatinine Clearance 123.3 mL/min (>60); Globulin 2.5 gm/dL (2.3-3.5); Glucose 103 mg/dL (74-106); Magnesium 2.0 mg/dL (1.6-2.6); Osmolality,Calculated 283 (275-295); Potassium 4.6 mMol/L (3.4-5.1); Sodium 142 mMol/L (136-145); Thyroid Stimulating Hormone 2.44 uIU/mL (0.55-4.78); Total Protein 6.7 gm/dL (5.7-8.2); eGFR > 60 See Note
[2024-12-31 09:36] LABS: T4 (Thyroxine) 7.6 mcg/dL (4.5-10.9)
[2025-01-01] VITALS (15 sets, daily range): BP systolic 103–158; BP diastolic 61–110; PULSE 72–107; RESP 10–18; TEMP 36.3; O2SAT 95–100
[2025-01-01] MEDS: SODIUM CHLORIDE 0.9% 500 ML 500 ML 250 ML IV (11:30)
--- NOTE | 2025-01-01 11:48 | ECHO_ITS ---
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 Complete two-dimensional, color flow and Doppler transesophageal study is performed. Primary Location: [facility] Medications * Medication: Versed 3 mg Fentanyl 75 mcg. Left Ventricle Left ventricular chamber dimension is normal. Left ventricular systolic function is mildly reduced with visually estimated ejection fraction of 40-45%. There is normal geometry noted in the left ventricle. Left ventricular segmental wall motion is normal. There is indeterminate diastolic function in the left ventricle. Right Ventricle Right ventricular chamber dimension is normal. Right ventricular systolic function is normal. Left Atrium Left atrial chamber dimension is normal. Left atrial appendage is normal with no LA or ALFIE thrombus. Right Atrium Right atrial chamber dimension is normal. Atrial Septum Bubble study negative for PFO or ASD. Aortic Valve The aortic valve is trileaflet. There is no aortic valve regurgitation. Pulmonic Valve The pulmonic valve is normal. Mitral Valve The mitral valve has normal leaflets. There is mild mitral valve regurgitation. Tricuspid Valve The tricuspid valve leaflets are normal. There is mild tricuspid valve regurgitation. Pericardium/Pleural The pericardium appears normal. Aorta The prox ascending aorta is normal. Report Signatures Finalized by Marshall Castle on 01/02/2025 02:05 PM
[2025-01-01] MEDS: BENZOCAINE 20% (Hurricaine) SPRAY 1 DOSE TOP (12:00)
[2025-01-01] MEDS: MIDAZOLAM INJ 1 MG/ML VIAL 2 ML 8 MG IVP (12:02)
[2025-01-01] MEDS: fentaNYL CIT INJ 50 mCg/ML AMP 2ML 150 MCG IVP (12:03)
--- NOTE | 2025-01-01 12:24 | ESOP_ITS ---
Procedure Direct current cardioversion for uncontrolled atrial fibrillation Moderate Conscious Sedation with Versed and Fentanyl Date of Procedure 01/01/25 Pre Op Diagnosis Atrial Fibrillation Indication Atrial Fibrillation Post Op Diagnosis Atrial Fibrillation Procedure Description Patient was in atrial fibrillation and ventricular rate was controlled came in for elective cardioversion as patient was having significant symptoms for the Afib. Decision was made to perform cardioversion for the patient after performing a transesophageal echocardiogram. Transesophageal echocardiogram was completed today and did not show any significant LA or ALFIE thrombus.? Please see CARLOS MANUEL report from today for rest of the findings.? Patient was already on anticoagulation with eliquis.. Patient was taken to the laborer adjustable steel joist for the CARLOS MANUEL and cardioversion, both anterior and posterior pads were placed.? Patient was given moderate sedation and received a total of 2 mg of Versed and 25 mcg of fentanyl prior to the procedure to provide him enough for sedation. A biphasic defibrillator was used.? A single 120 J and then a 220 J synchronized shock was given and the patient did not converted into normal sinus rhythm. No complications during or after the procedure.? Patient is doing well.? His heart rate was stable between 50 to 70 bpm and appears to be atrial fibrillation on the telemetry.? Recommend to perform an EKG to document atrial fibrillation postprocedure.? Patient will be monitored in the laborer adjustable steel joist for the next 1-2 hours and will be dis charged home if hemodynamically stable. Will adjust his medications for atrial fibrillation as outpatient. Estimated Blood Loss 0 Specimen(s) Specimen(s): None Conclusion Failed direct current cardioversion of Atrial Fibrillation Recommendation Continue metoprolol XL 25 mg Q Day if BP stable and will adjust medications in the office as outpatient. Continue Eliquis 5 mg BID for anticaogulation. EKG to document atrial fibrillation post procedure. Will refer patient to puppy sitter for possible ablation. No driving for 24 hours. Patient recommended to follow up in 1 week in the clinic. Surgical Staff Surgeon: Marshall Castle MD
--- NOTE | 2025-01-01 12:39 | EKG_ITS ---
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: : 1960 Requested By: Marshall Marie Order Number: [id number] Reading MD: Marshall Marie Measurements Intervals [place] Rate: 78 P: [place]: QRS: -20 QRSD: 103 T: -2 QT: 380 QTc: 433 Interpretive Statements ATRIAL FIBRILLATION WITH ABERRANT CONDUCTION OR VENTRICULAR PREMATURE COMPLEXES INCOMPLETE RIGHT BUNDLE BRANCH BLOCK POSSIBLE ANTERIOR MYOCARDIAL INFARCTION , PROBABLY OLD ABNORMAL RHYTHM ECG Compared to ECG 12/31/2024 08:53:38 Ventricular premature complex(es) now present Aberrant conduction of supraventricular beat(s) now present Myocardial infarct finding still present /store/S0/[id number]/[id number].pdf
== END 2025-01-01 14:00 | disposition home or self-care (01) ==
PROVIDERS: PCP Internal Medicine; Referring Provider Internal Medicine Cardiovascular Disease; Visit Provider Internal Medicine Cardiovascular Disease
PROC: (CPT 92960; principal; 2025-01-01 11:30)
DX: I48.19 Other persistent atrial fibrillation (principal); I82.411 Acute embolism and thrombosis of right femoral vein; E66.01 Morbid (severe) obesity due to excess calories; E03.9 Hypothyroidism, unspecified; Z01.810 Encounter for preprocedural cardiovascular examination; Z79.890 Hormone replacement therapy; Z79.01 Long term (current) use of anticoagulants; Z68.41 Body mass index [BMI] 40.0-44.9, adult
CPT/HCPCS: 92960; 36415; 80053; 83735; 84436; 84443; 85025; 85610; 85730; 93005; 93312; 99152; J2250; J3010; J7999; A9270

== ENCOUNTER → 2025-02-03 | Outpatient (CLI) | payer MEDICARE, SELFPAY ==
--- NOTE | 2025-02-03 08:42 | XR_ITS ---
EXAMINATION: PA lateral chest 2 views TECHNIQUE: Upright PA lateral chest 2 views Date and time: February 03, 2025, 0849 hours, comparison 11/15/2024 INDICATIONS: Coughing beginning 4 days ago. FINDINGS: Normal heart size Mild accentuation basilar bronchovascular markings. Moderate osteopenia IMPRESSION: Basilar bronchitis pattern
== END | disposition home or self-care (01) ==
PROVIDERS: Referring Provider Nurse Practitioner Family; Visit Provider Nurse Practitioner Family
DX: R05.9 Cough, unspecified (principal)
CPT/HCPCS: 71046

== ENCOUNTER 2025-02-27 13:31 | Emergency (ER) | payer MEDICARE, SELFPAY ==
[2025-02-27 13:32] VITALS: BMI 44.1
[2025-02-27 13:55] VITALS: BP 115/78; PULSE 80; RESP 18; TEMP 36.8; O2SAT 95
--- NOTE | 2025-02-27 13:58 | XR_ITS ---
AP and lateral radiographs lumbosacral spine on 02/27/2025 at 2: 12:00 p.m. INDICATION: Tenderness and abdominal pain in the back for 2 days after heavy lifting no abnormalities are seen in the soft tissues. There is moderate degenerative disc space narrowing at L4-5 with small surrounding osteophytes and minimal vacuum phenomenon in the disc space. There is also moderately prominent disc space narrowing at L5-S1 with vacuum phenomenon and surrounding degenerative osteophytes. No other abnormalities are noted. IMPRESSION: 1. Studies negative for trauma 2. There is moderately prominent degenerative disc disease at L4-5, and more prominent degenerative disc disease seen at L5-S1
--- NOTE | 2025-02-27 13:58 | XR_ITS ---
Examination: Duplex scan of the lower extremity, unilateral right Date and time of exam: 02/27/2025 at 2:32 p.m. CLINICAL HISTORY: 2 days of right leg pain and swelling Technique: Duplex scan of the extremity veins using B-mode/grayscale imaging and Doppler spectral analysis and color flow Attention is directed to internal echogenicity, compression and augmentation involving these veins, color flow assessment, spectral analysis Findings: Major deep venous structures in the extremity demonstrate normal course and caliber. There is no evidence of deep vein thrombosis. Normal color flow and spectral analysis There is evidence of prominent soft tissue edema involving the right lower leg Impression: Negative for DVT..
--- NOTE | 2025-02-27 13:59 | PD.EDRME ---
Rapid Medical Screening Exam RME Arrival date/time: 02/27/25 13:31 64-year-old male with a history of hypothyroidism, hypertension, DVT, presents to the emergency room with a chief complaint of tenderness and swelling to his right lower extremity and 6 out of 10 lumbar back pain I have greeted and performed a focused initial assessment of this patient. A comprehensive ED assessment and evaluation of the patient, analysis of all test results, and completion of the medical decision making process will be conducted by additional ED providers. Chief Complaint: Back Pain/Injury Time Seen by Provider: 02/27/25 13:43 Vital signs reviewed by provider: Yes Exam: 6 out of 10 lumbar back pain with palpation Tenderness and swelling to the right thigh Clinical Impression: DVT/lumbar back pain
[2025-02-27 14:25] LABS: Basophils # (Auto) 0.0 Thou/mm3 (0.0-0.2); Basophils % (Auto) 0 % (0-2.5); Eosinophils # (Auto) 0.0 Thou/mm3 (0.0-0.5); Eosinophils % (Auto) 0 % (0-10); Hematocrit 37.8 % (41.0-53.0); Hemoglobin 12.2 g/dL (13.5-16.0); Immature Granulocytes Auto 0.02 Thou/mm3 (0.00-0.00); Lymphocytes # (Auto) 1.4 Thou/mm3 (1.0-4.8); Lymphocytes % (Auto) 17 % (10-50); Mean Corpuscular HGB Conc 32.3 g/dl (31.0-37.0); Mean Corpuscular Hemoglobin 30.6 pg (25.0-35.0); Mean Corpuscular Volume 95 fL (80-100); Monocytes # (Auto) 0.7 Thou/mm3 (0.0-0.8); Monocytes % (Auto) 9 % (0-12); Neutrophils # (Auto) 6.1 Thou/mm3 (1.8-7.7); Neutrophils % (Auto) 74 % (37-80); Nucleated Red Blood Cell # 0.00 Thou/mm3 (0.00-0.00); Nucleated Red Blood Cell % 0 /100 WBC (0); Platelet Count 336 Thou/mm3 (140-440); RDW Standard Deviation 50.9 fL (35.1-43.9); Red Blood Count 3.99 Miln/mm3 (4.50-5.90); White Blood Count 8.3 Thou/mm3 (3.8-10.6)
[2025-02-27 14:41] LABS: INR 2.5 (0.9-1.3); Partial Thromboplastin Time 32.8 Seconds (22.0-36.0); Prothrombin Time 24.5 Seconds (9.0-12.2)
[2025-02-27 14:45] LABS: Alanine Aminotransferase 13 U/L (10-49); Albumin, Serum 4.1 gm/dL (3.4-4.8); Albumin/Globulin Ratio 1.3 (1.2-2.2); Alkaline Phosphatase 63 U/L (46-116); Anion Gap 9 (7-16); Aspartate Amino Transferase 16 U/L (0-34); BUN/Creatinine Ratio 14 Ratio (12-20); Bilirubin,Total 0.5 mg/dL (0.3-1.2); Blood Urea Nitrogen 13 mg/dL (9-23); Calcium 8.6 mg/dL (8.3-10.6); Calcium (Corrected) 8.6 mg/dL (8.5-10.1); Carbon Dioxide 27.3 mMol/L (20.0-31.0); Chloride 107 mMol/L (98-107); Creatinine (Component) 0.9 mg/dL (0.6-1.3); Estimated Creatinine Clearance 124.2 mL/min (>60); Globulin 3.1 gm/dL (2.3-3.5); Glucose 111 mg/dL (74-106); Osmolality,Calculated 286 (275-295); Potassium 4.1 mMol/L (3.4-5.1); Sodium 143 mMol/L (136-145); Total Protein 7.2 gm/dL (5.7-8.2); eGFR > 60 See Note
--- NOTE | 2025-02-27 15:47 | PD.EDBACK ---
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 Time Seen by Provider: 02/27/25 13:43 Source: patient and family Arrival date/time: 02/27/25 13:31 Mode of arrival: ambulatory Limitations: no limitations RME / HPI Complaint: back pain and back injury Onset (ago): day(s) Duration: constant Location: lumbar spine Severity: moderate Quality: sharp and stabbing Radiation: buttocks (Bilateral) RME / HPI Narrative: 02/27/25 13:31 64-year-old male with a history of hypothyroidism, hypertension, DVT, presents to the emergency room with a chief complaint of tenderness and swelling to his right lower extremity and 6 out of 10 lumbar back pain I have greeted and performed a focused initial assessment of this patient. A comprehensive ED assessment and evaluation of the patient, analysis of all test results, and completion of the medical decision making process will be conducted by additional ED providers. Patient states that the pain began 2 days ago while moving [place] with his . Patient denies any known history of low back pain concerns, but states he has had back pain issues in the past. Additionally, patient is concerned about DVT formation in his right lower extremity due to history of DVTs. Patient is currently on warfarin. Vital signs were stable on arrival. Exam: 6 out of 10 lumbar back pain with palpation Tenderness and swelling to the right thigh Impression: DVT/lumbar back pain Related Data Home Medications ?Medication ?Instructions ?Recorded ?Confirmed Levothyroxine * (SYNTHROID *) 100 mcg PO QDAY #0 tabs 03/03/14 01/01/25 lisinopril 10 mg tablet 10 mg PO QDAY #0 tabs 06/27/16 01/01/25 tramadol 50 mg tablet (Ultram) 50 mg PO BID PRN PAIN #0 tabs 06/27/16 01/01/25 folic acid 1 mg tablet 1 mg PO QDAY 01/01/25 01/01/25 methotrexate sodium 2.5 mg tablet 2.5 mg PO .xweek 01/01/25 01/01/25 metoprolol succinate 25 mg 25 mg PO QDAY 01/01/25 01/01/25 tablet,extended release 24 hr warfarin 1 mg tablet 1 mg PO QDAY 01/01/25 01/01/25 Previous Rx's ?Medication ?Instructions ?Recorded warfarin 5 mg tablet 5 mg PO QDAY #30 tabs 11/15/24 hydrocodone 10 mg-acetaminophen 1 tab PO Q8H PRN pain #15 tabs 02/27/25 325 mg tablet Allergies Allergy/AdvReac Type Severity Reaction Status Date / Time No Known Allergies Allergy Verified 02/27/25 13:34 Review of Systems Review of Systems Systems Reviewed: All systems reviewed, normal except as documented Past Medical History Past Medical History NEUROLOGIC: Negative Neurological Disorders CARDIAC: Positive Atrial Fibrillation; Negative Cardiac Disorders or Congestive Heart Failure RESPIRATORY: Negative Chronic Obstructive Pulmonary Disease (COPD) or Asthma GASTROINTESTINAL: Negative Gastrointestinal Disorders GENITOURINARY: Negative Genitourinary Disorders or Renal Disease MUSCULOSKELETAL: Positive Arthritis and Rheumatoid Arthritis ENDOCRINE: Positive Hypothyroidism; Negative Diabetes Mellitus Type 1 or Diabetes Mellitus Type 2 HEMATOLOGIC: Negative Blood Disorders or Sickle Cell Disease OTHER HISTORY: Negative Blood Transfusions or Anesthesia Reactions Social History SMOKING STATUS: Never smoker ED Exam Narrative Physical exam: Patient had a difficult time ambulating due to low back pain concerns. Patient is morbidly obese with a large pannus. General Limitations: Present no limitations General appearance: Present alert and in distress (Moderate distress due to low back pain and right lower extremity concerns.) Head Head exam: Present atraumatic Eye Eye exam: Present normal appearance, PERRL and EOMI ENT ENT exam: Present normal exam, normal oropharynx and mucous membranes moist Neck Neck exam: Present normal inspection, full ROM and trachea midline Chest Chest inspection: Present normal inspection and symmetric chest wall rise Respiratory Respiratory exam: Present normal lung sounds bilaterally Cardiovascular Cardiovascular exam: Present regular rate, normal rhythm and normal heart sounds Abdominal Exam Abdominal exam: Present soft and normal bowel sounds Extremities Exam Extremities exam: Present other (Right lower extremity is diffusely tender to palpation with some mild edema appreciated in distal aspect. No definitive erythema noted. Distal neurovascular intact.) Back Exam Back exam: Present other (Patient displays diffuse tenderness palpation throughout lumbar spine radiating bilaterally into the gluteus. No definitive step-offs noted. Patient denies any saddle paresthesia. Distal neurovascular intact.) Neurological Exam Neurological exam: Present alert, oriented X3 and CN II-XII intact Psychiatric Psychiatric exam: Present normal affect and normal mood Skin Skin exam: Present warm, dry, intact and normal color Course Quality Measures none Orders Category Date Time Status US venous doppler LE RT Stat Exams 02/27/25 13:58 Completed XR lumbar spine 2-3V Stat Exams 02/27/25 13:58 Completed CBC Stat Lab 02/27/25 14:10 Completed CMP [Comprehensive Metabolic Panel] Stat Lab 02/27/25 14:10 Completed PT [Prothrombin Time with INR] Stat Lab 02/27/25 14:10 Completed PTT [Partial Thromboplastin Time] Stat Lab 02/27/25 14:10 Completed HYDROcodone/APAP 10/325 [[place] 10/325] Med 02/27/25 15:46 Once 1 tab PO X1 ONE As noted above Vital Signs Vital signs: Vital Signs Temperature 98.2 F 02/27/25 13:55 Pulse Rate 80 02/27/25 13:55 Respiratory Rate 18 02/27/25 13:55 Blood Pressure 115/78 02/27/25 13:55 Pulse Oximetry (%) 95 02/27/25 13:55 Oxygen Delivery Method Room Air 02/27/25 13:55 As noted above Back Pain / Injury MDM Narrative MDM Narrative:: All studies performed in the ED were evaluated by me personally. Serum studies were unremarkable for any systemic concerns. Patient's PT and INR were elevated. I discussed the results with the patient and advised to follow-up with his primary care provider for adjustment on his warfarin dosing. Imaging studies of the lumbar spine revealed a moderate degenerative disc disease at L4-L5 and more prominent degenerative disc disease noted at L5-S1. Advised patient that he will need to follow-up with primary care provider for reevaluation and probable orthopedic referral. Patient and should receive an MRI for definitive evaluation. Patient data External records reviewed:: [facility] previous records Clinical information provided by:: patient Social determinants that could affect healthcare access:: none Patient has the following chronic illnesses:: A-fib, hypercoagulability issues How is presenting disease/condition affected by chronic disease/condition?: uneffected by Evaluation data The following diagnostics were reviewed and interpreted by me:: lab results and radiology exam(s) Lab and/or radiology exams considered but not ordered:: None Interpretation Summary: Degenerative disc disease of the lumbar spine Medications / Prescriptions Medications or Prescriptions considered but not ordered:: None Medication administrations:: [place] 10 Consultations Consultation(s) initiated? (list below): No Diagnosis Differential diagnosis back pain/injury: lumbar radiculopathy, sciatica and other (Degenerative disc disease of the lumbar spine, lumbar vertebral fracture, DVT, peripheral edema) Most likely diagnosis given after review of the tests above:: Degenerative disc disease of the lumbar spine, peripheral edema Admission Indicated Admission indicated?: not indicated Explain why admission is indicated or not indicated:: Unwarranted Admission Request Was there a request for admission?: No Disposition Plan Disposition Plan: Discharge Discharge Attestation Discharge Attestation: The patient and all family members were given an opportunity to ask questions and understood the discharge instructions. Discharge instructions specifically effects, indications for sooner follow up or return to the emergency department, and the expected course of current diagnosis. Patient condition: Stable Discharge Plan Plan Patient Disposition: HOME (Self Care) Prescriptions/Referrals Prescriptions/Med Rec: New hydrocodone-acetaminophen 10-325 mg tablet 1 tab PO Q8H MDD 3 tabs PRN (Reason: pain) Qty: 15 0RF No Action lidocaine HCl [Xylocaine] 10 mg/mL (1 %) solution 20 ml Infiltration X1 Qty: 20 0RF triamcinolone acetonide 40 mg/mL suspension 40 mg intra-articular X1 Qty: 1 0RF Levothyroxine * (SYNTHROID *) 200 MCG tablet 100 mcg PO QDAY Qty: 0 tramadol [Ultram] 50 MG tablet 50 mg PO BID PRN (Reason: PAIN) Qty: 0 Patient Comments: FOR PAIN, NOT TO EXCEED 8 TABS IN 24 HRS lisinopril 10 MG tablet 10 mg PO QDAY Qty: 0 warfarin 5 mg tablet 5 mg PO QDAY Qty: 30 2RF folic acid 1 mg tablet 1 mg PO QDAY Patient Comments: take 1 tablet by mouth once daily methotrexate sodium 2.5 mg tablet 2.5 mg PO .xweek Patient Comments: TAKE 6 TABLETS BY MOUTH ONCE A WEEK FOR 90 DAYS NEEDING FOLLOW UP APPT warfarin 1 mg tablet 1 mg PO QDAY metoprolol succinate 25 mg tablet extended release 24 hr 25 mg PO QDAY Referrals: Brenda Kelsey MD [Primary Care Provider] - In 1 week Problem List Clinical Impression: DDD (degenerative disc disease), lumbar, Lumbar radiculopathy Patient/Caregiver Discharge Instructions Education Materials: Relieving Back Pain Additional Instructions: Advise utilizing pain medication as needed for symptomatic relief as well as ice therapy. Patient needs to follow-up with primary care provider for discussion related to today's encounter as well as orthopedic referral and evaluation. Patient would benefit from an MRI study. Print Language: Moroccan Stand Alone Forms: Marian Award Info., Patient Portal Info Letter
== END 2025-02-27 16:50 | disposition home or self-care (01) ==
PROVIDERS: Nurse Practitioner Family; Emergency Provider Emergency Medicine; PCP Internal Medicine
DX: M51.16 Intervertebral disc disorders with radiculopathy, lumbar region (principal); I10 Essential (primary) hypertension; Z86.718 Personal history of other venous thrombosis and embolism; Z79.01 Long term (current) use of anticoagulants; E03.9 Hypothyroidism, unspecified
CPT/HCPCS: 36415; 72100; 80053; 85025; 85610; 85730; 93971; 99283; A9270